=== PATIENT | male | born 1975 | race Caucasian/White ===

== ENCOUNTER 2023-11-10 20:17 | Emergency (ER) | payer BC ==
[2023-11-10 20:31] VITALS: TEMP 97.7
[2023-11-10] MEDS ORDERED: FLUORESCEIN STRIPS 1 MG STRIP LEFT EYE ONE (20:36)
[2023-11-10] MEDS ORDERED: PROPARACAINE 0.5% OPHTH DROPS 15 ML BTL LEFT EYE STA (20:36)
--- NOTE | 2023-11-10 20:39 | ED ---
Eye Problem HPI - General Chief complaint: Eye Problems Stated complaint: Foreign Object in eye Time Seen by Provider: 11/10/23 20:32 Source: patient, RN notes reviewed Mode of arrival: ambulatory Limitations: no limitations - History of Present Illness Initial comments: Patient is a 47 from an presented ER with a chief complaint of foreign body in his left eye. Patient states on [id number], patient was using a metal reed tuner and felt something fly into his eye. Patient states his pain was okay at the time and increased on Sunday, [id number]. Patient took some [id number] pain medication with improvement. Patient states today the pain was uncontrollable with [id number] medications and he went to urgent care for evaluation. Patient reports that urgent care was unable to get the foreign body out of his eye and prompted him to come to the ER for further evaluation. Patient reports mild blurry vision. Patient denies any fevers, chills, night sweats. Patient reports he can see them metal object when looking into the mere. He reports that it is either metal or aluminum oxide. Patient denies any other injuries. - Related Data Allergies Allergy/AdvReac Type Severity Reaction Status Date / Time cashew nut Allergy Anaphylaxis Verified 11/10/23 20:22 Review of Systems ROS Statement: Those systems with pertinent positive or pertinent negative responses have been documented in the HPI. ROS Other: All systems not noted in ROS Statement are negative. Past Medical History Past Medical History: No Reported History History of Any Multi-Drug Resistant Organisms: None Reported Past Surgical History: Adenoidectomy, Hernia Repair, Tonsillectomy Past Psychological History: No Psychological Hx Reported Smoking Status: Never smoker Past Alcohol Use History: None Reported Past Drug Use History: None Reported General Exam Limitations: no limitations General appearance: alert, in no apparent distress Head exam: Present: atraumatic, normocephalic, normal inspection Eye exam: Present: normal appearance, PERRL, EOMI, conjunctival injection (Left eye there is a foreign body present). Absent: scleral icterus, periorbital swelling Pupils: Present: other Neck exam: Present: normal inspection. Absent: tenderness, meningismus, lymphadenopathy Respiratory exam: Present: normal lung sounds bilaterally. Absent: respiratory distress, wheezes, rales, rhonchi, stridor Cardiovascular Exam: Present: regular rate, normal rhythm, normal heart sounds. Absent: systolic murmur, diastolic murmur, rubs, gallop, clicks Neurological exam: Present: alert, oriented X3, CN II-XII intact Psychiatric exam: Present: normal affect, normal mood Skin exam: Present: warm, dry, intact, normal color. Absent: rash Course Vital Signs 11/10/23 11/10/23 20:22 22:00 Temperature 97.7 F Pulse Rate 81 75 Respiratory 16 18 Rate Blood Pressure 126/80 135/80 O2 Sat by Pulse 99 97 Oximetry Procedures - Forgein Body Removal Eye Site: Left Location in eye(s): nasal inferior side over iris Anesthetic Used: Proparacaine Eye Exam Technique: Fluorescein Foreign Body Suspected: Metal Forgein Body Removal Technique: Cotton Swab, Needle, Algerbrush Remaining Debris: Yes (Rust ring still present; metal fragment was removed) Patient Tolerated: well Medical Decision Making - Medical Decision Making Was pt. sent in by a medical professional or institution (, [facility], COMMUNITY DEVELOPMENT PLANNER, urgent care, hospital, or residential...) When possible be specific @ -Urgent care for ocular foreign body removal. Did you speak to anyone other than the patient for history (EMS, parent, family, police, friend...)? What history was obtained from this source @ -No Did you review nursing and triage notes (agree or disagree)? Why? @ -I reviewed and agree with nursing and triage notes Were old charts reviewed (outside hosp., previous admission, EMS record, old EKG, old radiological studies, urgent care reports/EKG's, residential records)? Report findings @ -No old charts were reviewed Differential Diagnosis (chest pain, altered mental status, abdominal pain women, abdominal pain men, vaginal bleeding, weakness, fever, dyspnea, syncope, headache, dizziness, GI bleed, back pain, seizure, CVA, palpatations, mental health, musculoskeletal)? @ -Corneal abrasion, foreign body, conjunctivitis EKG interpreted by me (3pts min.). @ -None X-rays interpreted by me (1pt min.). @ -None done CT interpreted by me (1pt min.). @ -None done U/S interpreted by me (1pt. min.). @ -None done What testing was considered but not performed or refused? (CT, X-rays, U/S, labs)? Why? @ -None What meds were considered but not given or refused? Why? @ -Tetanus vaccination was refused by patient. Did you discuss the management of the patient with other professionals (professionals i.e. , PA, COMMUNITY DEVELOPMENT PLANNER, lab, RT, psych nurse, drug abuse social worker, security intern, teacher, philanthropy officer, supportive employment case manager)? Give summary @ -No Was smoking cessation discussed for >3mins.? @ -No Was critical care preformed (if so, how long)? @ -No Were there social determinants of health that impacted care today? How? (Homelessness, low income, unemployed, alcoholism, drug addiction, transportation, low edu. Level, literacy, decrease access to med. care, alf, rehab)? @ -No Was there de-escalation of care discussed even if they declined (Discuss DNR or withdrawal of care, Hospice)? DNR status @ -No What co-morbidities impacted this encounter? (DM, HTN, Smoking, COPD, CAD, Cancer, CVA, ARF, Chemo, Hep., AIDS, mental health diagnosis, sleep apnea, morbid obesity)? @ -None Was patient admitted / discharged? Hospital course, mention meds given and route, prescriptions, significant lab abnormalities, going to OR and other pertinent info. @ -Discharged. Patient is a 47 year old male presenting to the ER with chief complaint of ocular foreign body. Upon examination, patient's vitals are stable. Fluorescent staining was significant for foreign body noted in left eye. Pupils equal round and reactive with intact extraocular movements. Ocular pressure was 9 mmHg. I attempted to remove the foreign body with a cotton swab, needle, Lisa brush. I was successful in removing the metal but the rust ring was too deep for safe removal. Dr. Alan also spoke with patient and performed a slit lamp exam and reported the foreign body was gone but the rust ring was still present. Patient does not wear contact lenses. Patient will be discharged with Tobrex and Ketorlac eye drops. I advised patient to follow-up with ophthalmology in the next 1-2 days. Patient refused tetanus vaccination. Patient will be discharged in stable condition with follow-up to ophthalmology. Patient expressed understanding and agreement with care plan. Undiagnosed new problem with uncertain prognosis? @ -No Drug Therapy requiring intensive monitoring for toxicity (Heparin, Nitro, Insulin, Cardizem)? @ -No Were any procedures done? @ -Yes Diagnosis/symptom? @ -Ocular foreign body Acute, or Chronic, or Acute on Chronic? @ -Acute Uncomplicated (without systemic symptoms) or Complicated (systemic symptoms)? @ -Uncomplicated Side effects of treatment? @ -No Exacerbation, Progression, or Severe Exacerbation? @ -No Poses a threat to life or bodily function? How? (Chest pain, [place], VT, pneumonia, PE, COPD, DKA, ARF, appy, cholecystitis, CVA, Diverticulitis, Homicidal, Suicidal, threat to staff... and all critical care pts) @ -No Disposition Clinical Impression: Foreign body of cornea Disposition: HOME SELF-CARE Condition: Stable Instructions (If sedation given, give patient instructions): Eye Foreign Body (ED) Additional Instructions: Please return to the Emergency Department if symptoms worsen or any other concerns. Please follow-up with ophthalmology as soon as possible. Is patient prescribed a controlled substance at d/c from ED?: No Referrals: None,Stated [Primary Care Provider] - 1-2 days Ricardo Stinson MD [STAFF PHYSICIAN] - 1-2 days Nelson Moreira MD [STAFF PHYSICIAN] - 1-2 days Fauzia Silva MD [STAFF PHYSICIAN] - 1-2 days Marlon Orr DO [Doctor of Osteopathic Medicine] - 1-2 days Keven Briscoe MD [STAFF PHYSICIAN] - 1-2 days Michael Sandoval MD [STAFF PHYSICIAN] - 1-2 days Time of Disposition: 22:38
[2023-11-10] MEDS ORDERED: IBUPROFEN 800 MG TAB PO STA (21:43)
[2023-11-10] MEDS ORDERED: TOBRAMYCIN 0.3% OPHTH DROPS 5 ML BTL LEFT EYE STA (22:36)
[2023-11-10 23:15] VITALS: BP 135/80; PULSE 75; RESP 18
[2023-11-10] MEDS ORDERED: KETOROLAC 0.5% OPHTH DROPS 5 ML BTL LEFT EYE SCH (23:16)
[2023-11-11] MEDS ORDERED: KETOROLAC 0.5% OPHTH DROPS 5 ML BTL LEFT EYE SCH (09:00)
== END 2023-11-10 23:20 | disposition home or self-care (01) ==
LOC: EC 20:17
DX: T15.02XA Foreign body in cornea, left eye, initial encounter (principal); Z91.018 Allergy to other foods
CPT/HCPCS: 65222; 99283